=== PATIENT | female | born 1980 | race Caucasian/White ===

== ENCOUNTER 2018-02-23 22:16 | Emergency (ER) | payer BC ==
[~2018-02-23] VITALS: Ht 170.2 cm; Wt 91.2 kg
[2018-02-23 22:47] VITALS: BP 171/92
[2018-02-24] MEDS ORDERED: BENZOCAINE (DENTAL) 20 % SPRAY 60ML MT ONE ×2 (00:45→01:15)
[2018-02-24] MEDS ORDERED: cefTRIAXone SOD 1,000 MG VL IM ONE (00:45)
== END 2018-02-24 01:30 | disposition home or self-care (01) ==
LOC: ER 22:16
DX: S03.2XXA Dislocation of tooth, initial encounter (principal); K02.9 Dental caries, unspecified; K04.7 Periapical abscess without sinus; X58.XXXA Exposure to other specified factors, initial encounter; Y93.89 Activity, other specified; Y99.8 Other external cause status; Y92.89 Other specified places as the place of occurrence of the external cause
CPT/HCPCS: 96372; 99283; J0696

== ENCOUNTER 2018-08-12 03:56 | Emergency (ER) | payer BC ==
[~2018-08-12] VITALS: Ht 170.2 cm; Wt 90.7 kg
[2018-08-12 04:26] VITALS: BP 172/89
[2018-08-12] MEDS ORDERED: IBUPROFEN 800 MG TAB PO ONE (06:00)
[2018-08-12] MEDS ORDERED: BENZOCAINE (DENTAL) 20 % SPRAY 60ML MT ONE (06:00)
== END 2018-08-12 06:05 | disposition home or self-care (01) ==
LOC: ER 03:58
DX: K08.89 Other specified disorders of teeth and supporting structures (principal); R51 Headache; R42 Dizziness and giddiness

== ENCOUNTER 2018-09-10 23:09 | Emergency (ER) | payer BC ==
[~2018-09-10] VITALS: Ht 170.2 cm; Wt 90.7 kg
[2018-09-10 23:18] VITALS: BP 152/100
[2018-09-11] MEDS ORDERED: BENZOCAINE (DENTAL) 20 % SPRAY 60ML MT ONE (06:30)
== END 2018-09-11 06:51 | disposition home or self-care (01) ==
LOC: ER 23:11
DX: K04.7 Periapical abscess without sinus (principal); F17.210 Nicotine dependence, cigarettes, uncomplicated